=== PATIENT | male | born 2000 | race Caucasian/White ===

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

== ENCOUNTER 2019-02-27 23:02 | Inpatient (IN) | payer SELFPAY ==
[~2019-02-27] VITALS: Ht 177.8 cm; Wt 106.0 kg
[~2019-02-27 23:02] MED LIST changes: +ZYPREXA 5MG5 MG PO
[2019-02-27 23:36] LABS: BASO # 0.1 (0.0-0.2); BASO % 0.4 % (0.0-2.0); EOS # 0.2 (0.0-0.7); EOS % 1.4 % (0-4.0); GRAN # 11.4 (1.4-6.5); HEMATOCRIT 47.1 % (36.0-47.0); HEMOGLOBIN 16.6 g/dl (12.5-16.1); LYMPH % 13.4 % (20.0-51.0); MEAN CELL VOLUME 84 fl (80.0-95.0); MEAN CORPUSCULAR HEMOGLOBIN 30 pg (26.0-32.0); MEAN CORPUSCULAR HGB CONC 35 g/dl (33.0-37.0); MEAN PLATELET VOLUME 9.1 fl (7.4-10.4); MONO # 0.9 (0.1-0.6); MONO % 6.4 % (1.7-9.3); PLATELET COUNT 273 K/mm3 (130-400); RED BLOOD COUNT 5.61 M/mm3 (4.20-5.60); REDCELL DISTRIBUTION WIDTH-CV 12.7 % (11.5-14.5)
[2019-02-27 23:45] LABS: ALANINE AMINOTRANSFERASE 54 U/L (21-72); ALBUMIN 4.9 gm/dL (3.5-5.0); ALKALINE PHOSPHATASE 95 U/L (50-136); ANION GAP 11 mmol/L (7-16); AST,SGOT 38 U/L (15-37); BILIRUBIN,TOTAL 0.6 mg/dL (0.0-1.0); BLOOD UREA NITROGEN 14 mg/dL (9-20); CALCIUM 9.4 mg/dL (8.4-10.2); CARBON DIOXIDE 24 mmol/L (22-30); CHLORIDE 105 mmol/L (98-107); GLUCOSE 100 mg/dL (74-106); MAGNESIUM 1.8 mg/dL (1.6-2.3); PHOSPHOROUS 2.4 mg/dL (2.5-4.5); SODIUM 139 mmol/L (137-145); TOTAL PROTEIN 8.3 gm/dL (6.4-8.2)
[2019-02-27 23:47] LABS: ACETAMINOPHEN < 10 ug/mL (10-30); SALICYLATE < 1.0 mg/dL
[2019-02-28] VITALS (599 sets, daily range): BP systolic 110–136; BP diastolic 54–78; PULSE 91–110; TEMP 97.9–100.2; O2SAT 85–100
[2019-02-28 00:04] LABS: ALCOHOL(ethanol),MEDICAL < 10 mg/dL
[2019-02-28 01:49] LABS: COLLECTION METHOD CLEAN CATCH
[2019-02-28 01:56] LABS: PH 7 (5-8); SQUAMOUS EPITHELIAL None Seen /hpf; URINE APPEARANCE Clear; URINE BACTERIA None Seen /hpf; URINE BILIRUBIN Negative (NEGATIVE); URINE BLOOD 1+ (NEGATIVE); URINE COLOR Yellow; URINE GLUCOSE Negative (NEGATIVE); URINE KETONE Negative (NEGATIVE); URINE LEUKOCYTE ESTERASE Negative (NEGATIVE); URINE NITRATE Negative (NEGATIVE); URINE PROTEIN(semi-quant) Negative (NEGATIVE); URINE UROBILINOGEN Negative (NEGATIVE)
[2019-02-28 02:03] LABS: TRICYCLIC ANTIDEPRESS URINE NEGATIVE
[2019-02-28 03:49] LABS: GLUCOSE,CSF 58 mg/dL (40-70); TOTAL PROTEIN,CSF 39 mg/dL (15-45)
[2019-02-28 04:49] LABS: CSF APPEARANCE CLEAR; CSF COLOR COLORLESS; CSF RBC 1 /mm3 (0-0)
[2019-02-28 04:58] LABS: CSF APPEARANCE CLEAR; CSF COLOR COLORLESS; CSF RBC 0 /mm3 (0-0)
[2019-02-28 05:49] LABS: CSF MONONUCLEAR 80 % (70-100); CSF POLYMORPHONUCLEAR 20 % (0-6)
[2019-02-28 05:56] LABS: CSF MONONUCLEAR 100 % (70-100); CSF POLYMORPHONUCLEAR 0 % (0-6)
--- NOTE | 2019-02-28 06:05 | NUR ---
PT arrived to unit on ER bed accompanied by MARCIA Sweet. Patient was transferred to unit bed with the assistance of myself, Micki, and MARCIA Reardon. PT was directed multiple times to transfer himself over in bed but was not responding. Using the fitted sheet, we transferred the patient over and he did not help transfer whatsoever. But when we turned to get the sheets out from underneath the patient, he helped with rolling. PT responds to pain stimulation when pressing on nailbeds, sternal rubs. PT eyelids noted to flutter whenever there are discussions occuring in the room and PT forced eyelids shut when I was trying to open them to assess his pupil response. Will continue to monitor.
--- NOTE | 2019-02-28 06:56 | NUR ---
PT friend, Demetrio, came to the unit to recieve updates and was accompanied by ER night clerk auditor who stated he was providing a majority of the information while the patient was in the ER. Demetrio updated on PT POC (neuro checks, vitals, labs, CT). I asked Demetrio if the patient had any mental health history or took medications, Demetrio stated that just over 1 year ago, PT overdosed in an attempt to commit suicide. He stated that since, the patient's mental health has had highs and lows where the patient was stating he was suicidal but would occasionally seek help from a rubber boots and shoes repairer at [facility]. States that the patient lives alone and is not close to his family but has people that support him at [facility]. Demetrio requested updates on the patient and left his number to call.
--- NOTE | 2019-02-28 08:17 | NUR ---
Pt closes eyes tightly when spoken to, withdraws/grimaces to pain. Does not follow commands.
--- NOTE | 2019-02-28 09:55 | NUR ---
Initial visit; Though unresponsive, C2 Tactical Analysis Technician spoke to patient and offered encouragement and prayer.
--- NOTE | 2019-02-28 11:00 | NUR ---
Patient is awaiting psychiatric screening for inpatient treatment due to overdose. Family is present at the hospital. Worker will be available to assist as needed with discharge plan.
[2019-02-28 15:25] LABS: MONOSCREEN NEGATIVE
[2019-02-28 15:53] LABS: BASO # 0.1 (0.0-0.2); BASO % 0.4 % (0.0-2.0); EOS # 0.2 (0.0-0.7); EOS % 1.4 % (0-4.0); GRAN % 69.9 % (42.2-75.2); HEMATOCRIT 44.5 % (36.0-47.0); HEMOGLOBIN 15.8 g/dl (12.5-16.1); LYMPH # 2.3 (1.2-3.4); LYMPH % 19.9 % (20.0-51.0); MEAN CELL VOLUME 85 fl (80.0-95.0); MEAN CORPUSCULAR HEMOGLOBIN 30 pg (26.0-32.0); MEAN CORPUSCULAR HGB CONC 36 g/dl (33.0-37.0); MONO # 0.9 (0.1-0.6); PLATELET COUNT 262 K/mm3 (130-400); RED BLOOD COUNT 5.25 M/mm3 (4.20-5.60); REDCELL DISTRIBUTION WIDTH-CV 12.8 % (11.5-14.5)
--- NOTE | 2019-02-28 19:33 | NUR ---
Dr. Spence at bedside to see patient.
--- NOTE | 2019-02-28 20:06 | NUR ---
Bedside shift report given. Patient is now alert and communicating appropriately. Friends in room visiting. Plan of care reviewed. Patient aware of plans to evaluate further for inpatient psych. Message left with social work to assist with evaluating where he is with application for Medicaid to determine choice of facility. Available results of testing reviewed with patient and family. Questions addressed.
--- NOTE | 2019-02-28 20:19 | NUR ---
Pt stands to use urinal. Denies dizziness. Reports discomfort from LP site. Band aid CDI, no drainage or edema.
[2019-03-01] VITALS (506 sets, daily range): BP systolic 109–114; BP diastolic 59–74; PULSE 75–95; TEMP 97.5–98.5; O2SAT 80–100
--- NOTE | 2019-03-01 05:39 | NUR ---
PT has slept all night, easily waking to disturbances and is repositioning himself. However, he is easily irritable with disturbances but calms down after rexplaining what I'm doing. PT has not had any states of stupor like he did upon admit.
--- NOTE | 2019-03-01 07:20 | NUR ---
Report given to MARCIA Odom.
[2019-03-01 08:29] LABS: BASO # 0.1 (0.0-0.2); BASO % 0.6 % (0.0-2.0); EOS # 0.3 (0.0-0.7); EOS % 3.2 % (0-4.0); GRAN # 5.1 (1.4-6.5); GRAN % 57.4 % (42.2-75.2); HEMATOCRIT 43.3 % (36.0-47.0); LYMPH # 2.7 (1.2-3.4); LYMPH % 30.5 % (20.0-51.0); MEAN CELL VOLUME 85 fl (80.0-95.0); MEAN CORPUSCULAR HEMOGLOBIN 30 pg (26.0-32.0); MEAN CORPUSCULAR HGB CONC 35 g/dl (33.0-37.0); MONO # 0.7 (0.1-0.6); PLATELET COUNT 259 K/mm3 (130-400); RED BLOOD COUNT 5.07 M/mm3 (4.20-5.60); REDCELL DISTRIBUTION WIDTH-CV 12.8 % (11.5-14.5)
[2019-03-01 08:42] LABS: CALCIUM 8.9 mg/dL (8.4-10.2); CREATININE, serum 0.73 (0.66-1.25)
--- NOTE | 2019-03-01 11:46 | NUR ---
BLUNGER LOADER student attended clinical rounds with the team. The patient reports he is unsure if he is willing to go to inpatient psych. A [facility] screen was ordered.
--- NOTE | 2019-03-01 12:51 | NUR ---
[facility] screener on iPad for a Zoom session. Patient left to talk to Laine (screener) and will call when finished. 1320 - Finished with screen. Screener states making safety plan and is ok to go home. Dr. Lieberman notified
--- NOTE | 2019-03-01 14:56 | NUR ---
The patient is to discharge home today, 03/01. The patient refused to go to inpatient psych. Therefore, a [facility] screen was ordered. Margarita Reyes screened the patient then created a safety plan with the patient. Margarita Reyes faxed the safety plan to the patient's nurse for the patient to sign. Once safety plan is signed and a follow up appointment is set with [facility] the patient will discharge. There are no additional needs at this time.
--- NOTE | 2019-03-01 15:40 | NUR ---
Spoke with Laine at [facility], follow up appointment scheduled for March 05.
--- NOTE | 2019-03-01 15:46 | NUR ---
Spoke with staff at [facility]. Hospital follow up made/new patient referral done. Staff there states patient will need to come 15 minutes early to update paperwork and will have to pay for the visit at time of office visit, $80.
--- NOTE | 2019-03-01 17:00 | NUR ---
Discharged to home, ambulatory to POV with friend driving him home. Patient states on way out the door that he thinks his drivers license is missing from his wallet. States it was there Tuesday and now it's not. Looked through the ED charting and arrival summary states clothing and phone as only valuables with patient on arrival. Friend thinks the DL may be at home, will call if unable to find it.
== END 2019-03-01 17:00 | disposition home or self-care (01) | DRG 884 ==
LOC: COL.ER 23:02 → ICU 02-28 05:31
PROVIDERS: Emergency Medicine; Internal Medicine; Physician Assistant; ADMIT Student in an Organized Health Care Education/Training Program
PROC: 009U3ZX Drainage of Spinal Canal, Percutaneous Approach, Diagnostic (ICD-10-PCS; principal; 2019-02-28)
DX: F84.0 Autistic disorder (principal); F32.9 Major depressive disorder, single episode, unspecified; G58.9 Mononeuropathy, unspecified; D72.829 Elevated white blood cell count, unspecified; Z91.5 Personal history of self-harm
CPT/HCPCS: 99223-AI; 99239; J2250; J7030

== ENCOUNTER 2019-03-03 13:27 | Emergency (ER) | payer SELFPAY ==
[~2019-03-03] VITALS: Ht 175.3 cm; Wt 100.0 kg
[2019-03-03 13:32] VITALS: BP 127/66
[2019-03-03 15:49] VITALS: PULSE 86
== END 2019-03-03 15:50 | disposition home or self-care (01) ==
LOC: COL.ER 13:27
DX: R51 Headache (principal)
CPT/HCPCS: J1200; J1885; J2060; J7030

== ENCOUNTER 2019-10-27 23:13 | Emergency (ER) | payer SELFPAY ==
[~2019-10-27] VITALS: Ht 172.7 cm; Wt 100.0 kg
[2019-10-27 23:18] VITALS: TEMP 98
[2019-10-28 00:06] LABS: BASO # 0.1 (0.0-0.2); BASO % 0.5 % (0.0-2.0); EOS # 0.3 (0.0-0.7); EOS % 2.6 % (0-4.0); GRAN # 5.3 (1.4-6.5); HEMATOCRIT 43.6 % (42.0-52.0); HEMOGLOBIN 15.2 g/dl (13.5-18.0); LYMPH # 3.9 (1.2-3.4); LYMPH % 38.4 % (20.0-51.0); MEAN CELL VOLUME 84 fl (80.0-100.0); MEAN CORPUSCULAR HEMOGLOBIN 29 pg (27.0-31.0); MEAN CORPUSCULAR HGB CONC 35 g/dl (33.0-37.0); MEAN PLATELET VOLUME 9.1 fl (7.4-10.4); MONO # 0.6 (0.1-0.6); MONO % 6.2 % (1.7-9.3); PLATELET COUNT 289 K/mm3 (130-400); RED BLOOD COUNT 5.17 M/mm3 (4.20-5.60); REDCELL DISTRIBUTION WIDTH-CV 12.5 % (11.5-14.5)
[2019-10-28 00:21] LABS: ALBUMIN 4.5 gm/dL (3.5-5.0); BILIRUBIN,TOTAL 0.6 mg/dL (0.0-1.0); CALCIUM 9.1 mg/dL (8.4-10.2); CREATININE, serum 0.9 (0.66-1.25); POTASSIUM 3.6 mmol/L (3.4-5.0); TOTAL PROTEIN 7.7 gm/dL (6.4-8.2)
[2019-10-28 00:40] VITALS: BP 125/75
[2019-10-28 01:23] VITALS: PULSE 80
== END 2019-10-28 01:23 | disposition home or self-care (01) ==
LOC: COL.ER 23:13
PROVIDERS: Physician Assistant
DX: G43.909 Migraine, unspecified, not intractable, without status migrainosus (principal)
CPT/HCPCS: J1200; J1885; J2765; J7030

== ENCOUNTER 2021-02-05 22:05 | Emergency (ER) | payer OTHER ==
[~2021-02-05] VITALS: Ht 172.7 cm; Wt 104.5 kg
[2021-02-06 00:08] VITALS: BP 134/90; PULSE 94; TEMP 98.3
== END 2021-02-06 00:08 | disposition home or self-care (01) ==
LOC: COL.ER 22:05
DX: T23.251A Burn of second degree of right palm, initial encounter (principal); Z23 Encounter for immunization; X16.XXXA Contact with hot heating appliances, radiators and pipes, initial encounter; Y92.59 Other trade areas as the place of occurrence of the external cause

== ENCOUNTER 2021-02-16 12:22 | Emergency (ER) | payer SELFPAY ==
[~2021-02-16] VITALS: Ht 172.7 cm; Wt 104.5 kg
[2021-02-16 13:07] VITALS: TEMP 98
[2021-02-16 14:36] LABS: BASO % 0.6 % (0.0-2.0); EOS # 0.2 K/mm3 (0.0-0.7); EOS % 3.2 % (0.0-4.0); GRAN % 56.1 % (42.2-75.2); HEMATOCRIT 43.9 % (42.0-52.0); HEMOGLOBIN 15.9 g/dl (13.5-18.0); LYMPH # 1.7 K/mm3 (1.2-3.4); LYMPH % 32.1 % (20.0-51.0); MEAN CELL VOLUME 81 fl (80.0-100.0); MEAN CORPUSCULAR HEMOGLOBIN 29 pg (27-31); MEAN CORPUSCULAR HGB CONC 36 g/dl (33.0-37.0); MEAN PLATELET VOLUME 9.2 fl (7.4-10.4); MONO # 0.4 K/mm3 (0.1-0.6); MONO % 7.6 % (1.7-9.3); PLATELET COUNT 231 K/mm3 (130-400); RED BLOOD COUNT 5.43 M/mm3 (4.20-5.60); REDCELL DISTRIBUTION WIDTH-CV 12.6 % (11.5-14.5)
[2021-02-16 14:54] LABS: ALBUMIN 4.1 gm/dL (3.5-5.0); BILIRUBIN,TOTAL 0.7 mg/dL (0.2-1.2); CREATININE, serum 0.94 mg/dL (0.72-1.25); POTASSIUM 4.2 mmol/L (3.5-4.5); TOTAL PROTEIN 7.9 gm/dL (6.2-8.1)
[2021-02-16] MEDS ORDERED: DOXYCYCLINE 10100 MG PO (15:13)
[2021-02-16 15:30] VITALS: BP 132/78; PULSE 104
== END 2021-02-16 15:30 | disposition home or self-care (01) ==
LOC: COL.ER 12:22
PROVIDERS: Physician Assistant
DX: U07.1 COVID-19 (principal); J12.82 Pneumonia due to coronavirus disease 2019; F84.0 Autistic disorder
CPT/HCPCS: J2405; J7030

== ENCOUNTER 2021-08-18 11:22 | Emergency (ER) | payer SELFPAY ==
[~2021-08-18] VITALS: Ht 172.7 cm; Wt 109.1 kg
[~2021-08-18 11:22] MED LIST changes: +DOXYCYCLINE 10100 MG PO
[2021-08-18 11:53] VITALS: BP 137/93; TEMP 98.3
[2021-08-18 13:48] LABS: BASO # 0.1 K/mm3 (0.0-0.2); BASO % 0.6 % (0.0-2.0); EOS # 0.1 K/mm3 (0.0-0.7); EOS % 1.8 % (0.0-4.0); GRAN # 4.1 K/mm3 (1.4-6.5); GRAN % 52.7 % (42.2-75.2); HEMOGLOBIN 17.4 g/dl (13.5-18.0); LYMPH # 3.1 K/mm3 (1.2-3.4); LYMPH % 38.8 % (20.0-51.0); MEAN CELL VOLUME 83 fl (80.0-100.0); MEAN CORPUSCULAR HEMOGLOBIN 29 pg (27-31); MEAN CORPUSCULAR HGB CONC 35 g/dl (33.0-37.0); MEAN PLATELET VOLUME 9.2 fl (7.4-10.4); MONO # 0.5 K/mm3 (0.1-0.6); PLATELET COUNT 313 K/mm3 (130-400); RED BLOOD COUNT 6.02 M/mm3 (4.20-5.60); REDCELL DISTRIBUTION WIDTH-CV 12.6 % (11.5-14.5)
[2021-08-18 14:06] LABS: CALCIUM 9.5 mg/dL (8.4-10.2); CREATININE, serum 0.9 mg/dL (0.72-1.25); POTASSIUM 4.1 mmol/L (3.5-4.5)
[2021-08-18 16:10] VITALS: PULSE 88
== END 2021-08-18 16:11 | disposition home or self-care (01) ==
LOC: COL.ER 11:22
PROVIDERS: Emergency Medicine
DX: H54.3 Unqualified visual loss, both eyes (principal); Z28.310 Unvaccinated for COVID-19
CPT/HCPCS: Q9967

== ENCOUNTER → 2021-10-06 | Outpatient (CLI) | payer SELFPAY | LOC: COL.RAD 14:45 | DX: H53.469 Homonymous bilateral field defects, unspecified side (principal); J32.9 Chronic sinusitis, unspecified; H57.10 Ocular pain, unspecified eye | CPT/HCPCS: A9575 ==

== ENCOUNTER 2022-12-26 16:30 | Emergency (ER) | payer SELFPAY ==
[~2022-12-26] VITALS: Ht 172.7 cm; Wt 109.1 kg
[2022-12-26 16:51] VITALS: TEMP 98.3
[2022-12-26 17:37] LABS: BASO # 0.1 K/mm3 (0.0-0.2); BASO % 0.8 % (0.0-2.0); EOS % 17.8 % (0.0-4.0); GRAN % 44.7 % (42.2-75.2); HEMATOCRIT 45.8 % (42.0-52.0); HEMOGLOBIN 16.2 g/dl (13.5-18.0); LYMPH # 3.6 K/mm3 (1.2-3.4); LYMPH % 31.7 % (20.0-51.0); MEAN CELL VOLUME 85 fl (80.0-100.0); MEAN CORPUSCULAR HEMOGLOBIN 30 pg (27-31); MEAN CORPUSCULAR HGB CONC 35 g/dl (33.0-37.0); MEAN PLATELET VOLUME 8.9 fl (7.4-10.4); MONO # 0.5 K/mm3 (0.1-0.6); MONO % 4.7 % (1.7-9.3); PLATELET COUNT 297 K/mm3 (130-400); RED BLOOD COUNT 5.41 M/mm3 (4.20-5.60); REDCELL DISTRIBUTION WIDTH-CV 12.7 % (11.5-14.5)
[2022-12-26 17:54] LABS: ALANINE AMINOTRANSFERASE 22 U/L (0-55); ALBUMIN 4.2 gm/dL (3.5-5.0); ALKALINE PHOSPHATASE 62 U/L (40-150); ANION GAP 13 mmol/L (7-16); AST,SGOT 21 U/L (5-34); BILIRUBIN,TOTAL 0.6 mg/dL (0.2-1.2); BLOOD UREA NITROGEN 13 mg/dL (9-21); C-REACTIVE PROTEIN 0.44 mg/dL (0.00-0.50); CALCIUM 9.3 mg/dL (8.4-10.2); CARBON DIOXIDE 21 mmol/L (22-29); CHLORIDE 107 mmol/L (98-107); CREATININE, serum 0.88 mg/dL (0.72-1.25); GLUCOSE 142 mg/dL (70-99); LIPASE 30 U/L (8-78); POTASSIUM 3.7 mmol/L (3.5-4.5); SODIUM 141 mmol/L (136-145); TOTAL PROTEIN 7.6 gm/dL (6.2-8.1)
[2022-12-26 18:01] LABS: TROPONIN-I < 0.010 ng/mL (0.00-0.033)
[2022-12-26] MEDS ORDERED: NAPROSYN500 MG PO (18:48)
[2022-12-26 19:00] VITALS: BP 146/89; PULSE 86
== END 2022-12-26 19:00 | disposition home or self-care (01) ==
LOC: COL.ER 16:30
PROVIDERS: Nurse Practitioner Primary Care
DX: M94.0 Chondrocostal junction syndrome [Tietze] (principal)
CPT/HCPCS: J1200; J1885